=== PATIENT | female | born 1990 | race Hispanic/Latino ===

== ENCOUNTER 2017-11-29 11:26 | Observation (INO) | payer MEDICAID ==
[~2017-11-29] VITALS: Ht 154.9 cm; Wt 70.3 kg
[2017-11-29 11:58] LABS: APPEARANCE,URINE Clear (CLEAR); BILIRUBIN,URINE Negative (NEGATIVE); COLOR,URINE Yellow (YELLOW); GLUCOSE, URINE (UA) Negative (NEGATIVE); KETONES,URINE Negative (NEGATIVE); LEUKOCYTE ESTERASE ,URINE Negative (NEGATIVE); NITRATE,URINE Negative (NEGATIVE); OCCULT BLOOD,URINE Negative (NEGATIVE); PROTEIN,URINE Trace (NEGATIVE)
[2017-11-29 12:17] LABS: BACTERIA,URINE Rare /HPF (None Seen); RBC,URINE 0-1 /HPF (0-1); SQUAMOUS EPITHELIAL CELL,UR Rare /HPF (0-2)
[2017-11-29] MEDS ORDERED: LACTATED RINGERS 1000ML IV SCH (12:30)
[2017-11-29] MEDS ORDERED: CEFTRIAXONE SODIUM 1 GM IV ONE ×2 (13:00)
[2017-11-29] MEDS ORDERED: CEFTRIAXONE SODIUM 1 GM ONE (13:28)
== END 2017-11-29 15:01 | disposition home or self-care (01) ==
LOC: LDH 11:26
PROVIDERS: ADMIT Obstetrics & Gynecology; ATTEND Obstetrics & Gynecology
DX: O26.893 Other specified pregnancy related conditions, third trimester (principal); R10.31 Right lower quadrant pain; R10.32 Left lower quadrant pain; R19.7 Diarrhea, unspecified; Z3A.34 34 weeks gestation of pregnancy
CPT/HCPCS: 81001; 96360; A4218; G0378 ×5; J0696; J7120; 96361